=== PATIENT | female | born 1980 | race Caucasian/White ===

== ENCOUNTER → 2017-08-08 | Outpatient (CLI) | payer OTHER | LOC: FIMAGING 11:22 | PROVIDERS: ATTEND Advanced Practice Midwife | DX: O09.522 Supervision of elderly multigravida, second trimester (principal); O46.8X2 Other antepartum hemorrhage, second trimester; Z3A.13 13 weeks gestation of pregnancy ==

== ENCOUNTER → 2017-09-26 | Outpatient (CLI) | payer OTHER | LOC: FIMAGING 10:31 | PROVIDERS: ATTEND Advanced Practice Midwife | DX: O09.522 Supervision of elderly multigravida, second trimester (principal); O44.52 Low lying placenta with hemorrhage, second trimester; O43.122 Velamentous insertion of umbilical cord, second trimester; Z3A.20 20 weeks gestation of pregnancy ==

== ENCOUNTER → 2017-10-24 | Outpatient (CLI) | payer OTHER | LOC: FIMAGING 10:43 | PROVIDERS: ATTEND Advanced Practice Midwife | DX: O09.522 Supervision of elderly multigravida, second trimester (principal); O44.42 Low lying placenta NOS or without hemorrhage, second trimester; Z3A.24 24 weeks gestation of pregnancy ==

== ENCOUNTER → 2017-11-30 | Outpatient (CLI) | payer OTHER | LOC: FIMAGING 09:19 | PROVIDERS: ATTEND Advanced Practice Midwife | DX: O09.523 Supervision of elderly multigravida, third trimester (principal); O44.43 Low lying placenta NOS or without hemorrhage, third trimester; Z3A.30 30 weeks gestation of pregnancy ==

== ENCOUNTER → 2018-01-15 | Outpatient (CLI) | payer OTHER | LOC: FIMAGING 14:14 | PROVIDERS: ATTEND Advanced Practice Midwife | DX: O09.523 Supervision of elderly multigravida, third trimester (principal); O43.893 Other placental disorders, third trimester; Z3A.36 36 weeks gestation of pregnancy ==

== ENCOUNTER 2018-02-13 16:38 | Inpatient (IN) | payer OTHER ==
[2018-02-13] MEDS ORDERED: LIDOCAINE 1% 300 MG/30 ML SDV SC PRN (17:14)
[2018-02-13] MEDS ORDERED: TERBUTALINE SULFATE 1 MG/ML VIAL IV PRN (17:14)
[2018-02-13] MEDS ORDERED: OLIVE OIL 118 ML BTL MISC PRN (17:14)
[2018-02-13] MEDS ORDERED: MISOPROSTOL 200 MCG TAB PO PRN (17:14)
[2018-02-13] MEDS ORDERED: EPSOM SALT 454 GM TP PRN (17:14)
[2018-02-13] MEDS ORDERED: OXYTOCIN/RINGERS LACTATE 1,000 ML IV PRN (17:14)
[2018-02-13] MEDS ORDERED: AMMONIA AROMATIC 1 EACH AMP IH PRN (17:14)
[2018-02-13] MEDS ORDERED: IBUPROFEN 600 MG TAB PO PRN (17:14)
[2018-02-13] MEDS ORDERED: LR 1,000 ML IV PRN (17:14)
--- NOTE | 2018-02-13 17:20 | PDGENHP ---
History and Physical History and Physical: Care: [facility] HPI: Patient is a 37 yo G2 P 0 @ 40.5 weeks that presents to L&D with complaints of contractions since Monday getting stronger. Was seen in the office this afternoon and found to be 3-4 cm. Went out to do errands and noted contractions to be much stronger and closer together EDC: 02/08/2018 which is based on LMP: 05/04/17 which is known and consistent with Ultrasound at 11 weeks. Her is complicated by: AMA, Elevated BMI, low lying placenta that resolved however marginal cord insertion and bi-lobed placenta anterior and posterior. Review of Systems: Constitutional: Denies any fever, chills, or fatigue HEENT: denies any visual changes, difficulty swallowing, hearing loss Cardiovascular: Denies any chest pain, palpitations, leg swelling Respiratory: denies any cough, wheezing, or shortness of breathe GI: Denies any nausea, vomiting, diarrhea, constipation : denies any dysuria, urgency, frequency, vaginal bleeding Musculoskeletal: denies any muscle or bone pain Skin: denies any rashes Neuro: denies any headache, seizures, lightheadedness, dizziness, or loss of consciousness Psychiatric: denies any depression, anxiety, or SI/HI thoughts HISTORY: Previous OB history: Previous MAB with D & C at 9 weeks Past medical history: mild depression not required Past surgical history: D & C 2017 Social: Denies any alcohol, tobacco, or drug use. Family history: Mother hypothyroid; father renal cancer Medications: PNV Allergies (list reaction): Penicillin- Hives LABS: Rh: O + ABS: Neg Rubella: Immune HbsAg: NR HIV: NR VDRL: NR 1hr: 86 GC: Neg Chlamydia: Neg Pap: Normal 2012; needs pap GBS: neg BMI: (prepreg) 32 PHYSICAL EXAM: Constitutional: WN, A&Ox3 HEENT: normocephalic atraumatic, supple Skin: Warm, dry, intact Heart: RRR, no murmur Chest: CTA-B Abdomen: Soft, nontender, gravid SVE: 3-4 at 3 pm today in the office Extremities: +2edema, negative homans sign Neuro: grossly normal Psych: anxious, having a difficult time relaxing with contractions or with IV insertion assessment: FHT baseline 130 +accels, no decels, moderate variability Contractions: toco q 5-7 Assessment: 1) 37yo G 2P 0 with IUP@ 40.5 2) latent labor 3) GBS neg 4) Cat 1 FHR tracing Plan: 1) Admit to L&D 2) Continuous monitoring 3) Assess placenta closely when delivered to ensure both lobes present 4) Otherwise expectant management Today's visit was approximately 30 min, of which >50% of visit was spent face to face with pt on direct counseling/coordination of care.
[2018-02-13] MEDS ORDERED: OXYTOCIN 10 UNIT/ML VIAL ONE (18:10)
[2018-02-13 18:23] LABS: PLATELET COUNT 216 10^3/uL (150-400)
[2018-02-14] MEDS ORDERED: fentaNYL 100 MCG/2 ML INJ IVP PRN (02:06)
--- NOTE | 2018-02-14 02:17 | OBPROG ---
Labor Progress Note Assessment/Plan: Assessment: Plan: 02/14/18 02:21 A: Transitional labor Not coping well Category 1 strip however difficult to continuously monitor P: Discussed pain control options including an epidural. Patient had stated that she wanted to try a narcotic pain relief and wanted to avoid an epidural. Discussed concern about trauma from not coping well with labor and advised narcotic may help her relax or she may not like it at all and takes at least an hour to wear off. After I left the room, metal hanging helper and friends discussed pain control options more and she would now like to proceed with an epidural. Once she is comfortable, if still having a difficult time monitoring will again recommend and FSE. Subjective/Intrapartum Course: 02/14/18 02:16 Pt having a very difficult time coping; screaming through contractions. Has been using nitrous along with labor support from metal hanging helper and others. Lots of position changes. Questions about pain control options. Concerned about getting an epidural. Objective: 02/13/18 17:15 Patient ABO/Rh O POSITIVE 02/13/18 17:15 - SVE Dilation (cm): 8 (thick anterior lip) Effacement (%): 90 Station: -1 Membranes: Intact - Contraction Pattern Assessment Current Contraction Pattern: Regular (q 2.5 to 3 minutes) - FHR Assessment Mccarthy FHR (bpm): 120 (having a very difficlt time keeping baby on monitor; discussed earlier this evening need to continuously monitor and discussed placing an FSE; declined. RN has been sitting in the room with her and states she can hear the baby but its not showing up well on the monitor) FHR Pattern Variability: Moderate (very difficult time continuously monitoring; discussed need to continuously monitor and an FSE. Declined. RN has been sitting in room trying to keep baby on monitor. States she can hear the heart beat but not showing up on monitor) FHR Category: 1 Oxytocin Orders Assessment - Pre-Induction/Augmentation Assessment Gestational Age: 40 week(s) and 5 day(s) ICD10 Worksheet Patient Problems: Problems Problem Status Onset Acute Acute
[2018-02-14] MEDS ORDERED: fentaNYL 2MCG/ML/BUP 0.1% RTU 100 ML BAG EP ONE (02:40)
[2018-02-14] MEDS ORDERED: PHENYLEPHRINE HCL 100 MCG/ML SYR ONE (02:40)
--- NOTE | 2018-02-14 03:11 | PREANESOB ---
Obstetric Pre-Anesthesia Info - General Info Proposed Procedure: BEATRIZ : 2 Para: 0 FABIANA: 02/08/18 Gestational Age: 40 week(s) and 5 day(s) - Info Status: Full Term, Mccarthy Monitors: External FHR Pattern: Reassuring - Labor Status Cervical Dilation per last OB SVE: 8 (thick anterior lip) Station per last OB SVE: -1 Indications for Labor Analgesia: Pain Control Labor Epidural: Proposed Anesthesia Allergies/Adverse Reactions: Allergy/AdvReac Type Severity Reaction Status Date / Time penicillin V Allergy Verified 02/13/18 17:13 Penicillins Allergy Verified 02/13/18 17:13 Home Medications: Medication Instructions Recorded Vit27&Calcium/Iron/FA 1 each PO DAILY 02/13/18 [ Rx 1 Tablet (RX)] Visit Medications: Generic Name Dose Route Start Last Admin Trade Name Freq PRN Reason Stop Dose Admin Ammonia (Aromatic Spirit) 1 each 02/13/18 17:14 Ammonia Aromatic IH 02/23/18 17:13 ONCE PRN Fainting Fentanyl 50 mcg 02/14/18 02:06 Sublimaze IVP 02/24/18 02:05 Q2HRS PRN Pain, Severe Unable to Take PO Lactated Ringer's 1,000 mls @ 0 mls/hr 02/13/18 17:14 Lr IV 02/14/18 17:13 PRN PRN SEE PROTOCOL CONDITIONS Protocol Per Protocol Oxytocin/Lactated Ringer's 1,000 mls @ 0 mls/hr 02/13/18 17:14 Pitocin 20 Units/Lr (Premix) IV PRN PRN Post bleeding As Directed Ibuprofen 600 mg 02/13/18 17:14 Motrin PO ONCE PRN post , pain Lidocaine HCl 300 mg 02/13/18 17:14 Lidocaine Hcl 1% SC 08/12/18 17:13 ONCE PRN episiotomy Magnesium Sulfate 454 gm 02/13/18 17:14 Epsom Salt TP 08/12/18 17:13 Q1H PRN perineal discomfort Misoprostol 800 - 1,000 mcg 02/13/18 17:14 Cytotec PO 08/12/18 17:13 ONCE PRN Vaginal Atony/Bleeding [place] Oil 118 ml 02/13/18 17:14 Sweet Oil MISC 08/12/18 17:13 ONCE PRN perineal massage Terbutaline Sulfate 0.25 mg 02/13/18 17:14 Brethine IV 08/12/18 17:13 ONCE PRN Tachysystole Discontinued Medications Generic Name Dose Route Start Last Admin Trade Name Verenice PRN Reason Stop Dose Admin Fentanyl/Bupivacaine HCl Confirm 02/14/18 02:40 Fentanyl/Bupivacaine/Ns 2 Mcg/Ml 0.1% (Premix Administered 02/14/18 02:41 Dose 100 ml EP .STK-MED ONE Oxytocin Confirm 02/13/18 18:10 Pitocin Administered 02/13/18 18:11 Dose 10 unit .ROUTE .STK-MED ONE Phenylephrine HCl Confirm 02/14/18 02:40 Neosynephrine Administered 02/14/18 02:41 Dose 1,000 mcg .ROUTE .STK-MED ONE - Vital Signs Height/Weight (Nursing): Height 165.1 cm Weight 108.862 kg - Focused Exam Neck exam: FROM Mallampati Score: Class 2 Mouth exam: normal dental/mouth exam Pulmonary: no respiratory distress, no rales or rhonchi, clear to auscultation Cardiovascular: regular rate and rhythym, no murmur, rub, or gallop Labs: 02/13/18 17:15 Patient ABO/Rh O POSITIVE 02/13/18 17:15
[2018-02-14] MEDS: PHENYLEPHRINE HCL 100 MCG/ML SYR IVP PRN ×6 (03:23→04:44)
[2018-02-14] MEDS: LR 500 ML IV SCH ×2 (03:23→06:03)
[2018-02-14] MEDS ORDERED: fentaNYL 2MCG/ML/BUP 0.1% RTU 100 ML EP SCH (03:30)
--- NOTE | 2018-02-14 03:33 | POSTANESTH ---
Post Anesthetic Evaluation Cardiovascular Status: Normal, Stable, Similar to Pre-Op Cond Respiratory Status: Normal, Stable, Similar to Pre-op Cond. Level of Consciousness/Mental Status: Can Participate in Eval Pain Control: Adequate, Prn Tx Ordered Nausea/Vomiting Control: Adequate, Prn Tx Ordered Complications Possibly Related to Anesthesia: None Noted (Good analgesia. Still a little coccygeal pain with contractions, but she's able to rest through them.)
[2018-02-14] MEDS ORDERED: LR 500 ML IV PRN (10:30)
[2018-02-14] MEDS ORDERED: OXYTOCIN/RINGERS LACTATE 500 ML IV SCH (10:30)
--- NOTE | 2018-02-14 10:30 | OBPROG ---
Labor Progress Note Assessment/Plan: Assessment: [id number] with IUP@ 40-6wks labor GBS Negative BEATRIZ in place Plan: labor down x 1 hour reassess/start pushing in 1-2 hours anticipate Subjective/Intrapartum Course: 02/14/18 02:16 Pt having a very difficult time coping; screaming through contractions. Has been using nitrous along with labor support from dump truck driver and others. Lots of position changes. Questions about pain control options. Concerned about getting an epidural. 02/14/18 07:30 Pt doing ok- comfortable with BEATRIZ, having some intermittent pressure with contractions. after attempting pushing through 3-4 contractions- decision made to passive descent Objective: 02/13/18 17:15 Patient ABO/Rh O POSITIVE 02/13/18 17:15 - SVE Dilation (cm): 10 Effacement (%): 100 Station: +1 Membranes: SROM Amniotic Fluid Color: Clear - Contraction Pattern Assessment Current Contraction Pattern: Regular (q 2.5 to 3 minutes) - FHR Assessment Mccarthy FHR (bpm): 150 FHR Pattern Variability: Moderate FHR Category: 1 Oxytocin Orders Assessment - Pre-Induction/Augmentation Assessment Gestational Age: 40 week(s) and 5 day(s) ICD10 Worksheet Patient Problems: Problems Problem Status Onset Admitted to labor and delivery Acute Long labor, antepartum Acute Acute Acute - ICD10 Problem Qualifiers (1) Long labor, antepartum (2) Admitted to labor and delivery
[2018-02-14] MEDS ORDERED: SIMETHICONE 80 MG TAB CHEW PO PRN (14:24)
[2018-02-14] MEDS ORDERED: HYDROCORTISONE 0.5% CREAM TP PRN (14:24)
--- NOTE | 2018-02-14 14:24 | OBDEL ---
Info Type: Vaginal Presentation at Delivery: Vertex L&D Analgesia/Anesthesia Type: Epidural GBS+: No Intrapartum Medications: Generic Name Dose Route Start Last Admin Trade Name Verenice PRN Reason Stop Dose Admin Fentanyl/Bupivacaine HCl 100 mls @ 0 mls/hr 02/14/18 03:30 02/14/18 03:02 Fentanyl/Bupivacaine/Ns 2 Mcg/Ml 0.1% (Premix EP 02/24/18 03:29 100 mls CONT THA Administration Protocol As Directed Lactated Ringer's 500 mls @ 0 mls/hr 02/14/18 03:30 02/14/18 06:03 Lr IV 08/13/18 03:29 500 mls CONT THA Administration As Directed Oxytocin/Lactated Ringer's 500 mls @ 0 mls/hr 02/14/18 10:30 02/14/18 10:42 Pitocin 30 Units/Lr (Premix) IV 08/13/18 10:29 500 mls CONT THA Administration Protocol Per Protocol Phenylephrine HCl 100 mcg 02/14/18 03:11 02/14/18 04:44 Neosynephrine IVP 08/13/18 03:10 100 mcg .Q2M PRN Administration Hypotension - Hospital Course Intrapartum: 02/14/18 02:16 Pt having a very difficult time coping; screaming through contractions. Has been using nitrous along with labor support from visual basic programmer and others. Lots of position changes. Questions about pain control options. Concerned about getting an epidural. 02/14/18 07:30 Pt doing ok- comfortable with BEATRIZ, having some intermittent pressure with contractions. after attempting pushing through 3-4 contractions- decision made to passive descent Indications for Delivery: Spontaneous Labor, SROM Vaginal Delivery - Delivery Provider Delivery Physician/CNM: Adore Paiz - Labor and Delivery Onset of Contractions Date: 02/13/18 Onset of Contractions Time: 13:30 Onset of Contractions Type: Spontaneous Rupture of Membranes Date: 02/14/18 Rupture of Membranes Time: 02:00 Rupture of Membranes Type: Spontaneous Amniotic Fluid Color: Clear Dilation Complete Date: 02/14/18 Dilation Complete Time: 06:50 Placenta Delivery Date: 02/14/18 Placenta Delivery Time: 12:21 Total Hours of Labor: 22 Laceration: 2nd Degree, Other (Specify) (labial lacerations) Repair: 3-0, Vicryl, Chromic Vaginal Sponge Count Correct: Yes Vaginal Needle Count Correct: Yes Vaginal Sweep Performed: Yes EBL: 400 Delivery Comment: delivered without difficulty. Spontaneous cry- baby to mothers chest. [place] Data FABIANA: 02/08/18 Gestational Age: 40 week(s) and 6 day(s) Mccarthy Delivery Date: 02/14/18 Delivery Time: 12:14 Sex of Infant: Male Score (1 Min): 9 Score (5 Min): 9 ICD10 Worksheet Patient Problems: Problems Problem Status Onset Admitted to labor and delivery Acute Long labor, antepartum Acute Acute Acute - ICD10 Problem Qualifiers (1) Long labor, antepartum (2) Admitted to labor and delivery
[2018-02-14] MEDS: IBUPROFEN 600 MG TAB PO SCH ×2 (14:47→20:35)
[2018-02-14] MEDS: ACETAMINOPHEN 325 MG TAB PO SCH ×2 (18:27→21:08)
[2018-02-15] MEDS: IBUPROFEN 600 MG TAB PO SCH ×4 (02:31→21:26)
[2018-02-15] MEDS: ACETAMINOPHEN 325 MG TAB PO SCH ×4 (02:32→20:14)
[2018-02-15] MEDS: DOCUSATE SODIUM 100 MG CAP PO PRN (08:43)
--- NOTE | 2018-02-15 10:58 | POSTANESTH ---
Post Anesthetic Evaluation Cardiovascular Status: Normal, Stable Respiratory Status: Normal, Stable Level of Consciousness/Mental Status: Can Participate in Eval Pain Control: Adequate, Prn Tx Ordered Nausea/Vomiting Control: Adequate, Prn Tx Ordered Complications Possibly Related to Anesthesia: None Noted (Patient reports labor BEATRIZ analgesia was "a life saver". No residual weakness/numbness, headache, visual or auditory issues ellicited. Able to ambulate and urinate without difficulty.)
--- NOTE | 2018-02-15 11:10 | OBPP ---
Progress Note Assessment/Plan: Assessment: 37 y/o P1 s/p ppd 1 going well 400 ebl-declines pp hct Plan: routine pp care daily iron plan d/c tomorrow 02/15/18 11:06 Subjective/ Course: 02/15/18 11:10 Feeling good this am - going fine. Tolerating diet, voiding, ambulating, pain well controlled with oral pain meds. Declined blood draw for hct this am - agrees to daily iron supplement. 02/15/18 11:13 Objective: 02/13/18 17:15 Patient ABO/Rh O POSITIVE 02/13/18 17:15 Temp Pulse Resp BP Pulse Ox 36.6 C 79 16 108/73 98 02/15/18 09:13 02/15/18 09:13 02/15/18 09:13 02/15/18 09:13 02/15/18 09:13 Uterine Position/Fundal Height: Umbilicus -1 Uterine Tone: Firm Physical Exam - Physical Exam EENT: PERRL/EOMI Neck: non-tender Respiratory: normal breath sounds Cardiac/Chest: regular rate, rhythm Extremities: normal range of motion Skin: normal color Neuro/Psych: no motor/sensory deficits, alert, normal mood/affect, oriented x 3
[2018-02-15] MEDS: FERROUS SULFATE 325 MG TAB PO SCH (11:27)
[2018-02-16] MEDS: DOCUSATE SODIUM 100 MG CAP PO PRN ×2 (02:35→09:01)
[2018-02-16] MEDS: ACETAMINOPHEN 325 MG TAB PO SCH ×2 (02:35→09:01)
[2018-02-16] MEDS: IBUPROFEN 600 MG TAB PO SCH ×3 (03:55→10:44)
[2018-02-16] MEDS: FERROUS SULFATE 325 MG TAB PO SCH (09:01)
--- NOTE | 2018-02-16 10:23 | OBPP ---
Progress Note Assessment/Plan: Assessment: Plan: 02/14/18 02:21 A: Transitional labor Not coping well Category 1 strip however difficult to continuously monitor P: Discussed pain control options including an epidural. Patient had stated that she wanted to try a narcotic pain relief and wanted to avoid an epidural. Discussed concern about trauma from not coping well with labor and advised narcotic may help her relax or she may not like it at all and takes at least an hour to wear off. After I left the room, production team manager and friends discussed pain control options more and she would now like to proceed with an epidural. Once she is comfortable, if still having a difficult time monitoring will again recommend and FSE. 02/16/18 10:22 Day 2 PP Establishing ; left nipple cracked P: APO applied after feedings Continue ibuprofen and tylenol Discharge home today; reviewed discharge instructions Subjective/ Course: 02/15/18 11:10 Feeling good this am - going fine. Tolerating diet, voiding, ambulating, pain well controlled with oral pain meds. Declined blood draw for hct this am - agrees to daily iron supplement. 02/15/18 11:13 02/16/18 10:21 Doing well. Able to get some good rest last night. States going well. Left nipple is sore. Objective: 02/13/18 17:15 Patient ABO/Rh O POSITIVE 02/13/18 17:15 Temp Pulse Resp BP Pulse Ox 36.4 C 94 18 123/73 H 97 02/15/18 20:15 02/15/18 20:15 02/15/18 20:15 02/15/18 20:15 02/15/18 20:15 Breasts: Soft, left nipple cracked neg douglas's sign Uterine Position/Fundal Height: Umbilicus -1 Uterine Tone: Firm
--- NOTE | 2018-02-16 10:24 | OBGCSDC ---
General Delivery Information - General Info : 2 Para: 1 Abortions: 1 Type: Vaginal L&D Analgesia/Anesthesia Type: Epidural Admission Date: 02/13/18 Labs: Patient ABO/Rh O POSITIVE 02/13/18 17:15 Hct 37.5 % (38.0-47.0) L 02/13/18 17:15 - Hospital Course Intrapartum: 02/14/18 02:16 Pt having a very difficult time coping; screaming through contractions. Has been using nitrous along with labor support from end finder twisting department and others. Lots of position changes. Questions about pain control options. Concerned about getting an epidural. 02/14/18 07:30 Pt doing ok- comfortable with BEATRIZ, having some intermittent pressure with contractions. after attempting pushing through 3-4 contractions- decision made to passive descent : 02/15/18 11:10 Feeling good this am - going fine. Tolerating diet, voiding, ambulating, pain well controlled with oral pain meds. Declined blood draw for hct this am - agrees to daily iron supplement. 02/15/18 11:13 02/16/18 10:21 Doing well. Able to get some good rest last night. States going well. Left nipple is sore. Vaginal - Delivery Provider Delivery Physician/CNM: Adore Paiz - Diagnosis Labor: Spontaneous Rupture of Membranes Type: Spontaneous Amniotic Fluid Color: Clear Laceration: 2nd Degree, Other (Specify) (labial lacerations) Repair: 3-0, Vicryl, Chromic - Delivery EBL: 400 Data FABIANA: 02/08/18 Gestational Age: 41 week(s) and 1 day(s) Mccarthy Delivery Date: 02/14/18 Delivery Time: 12:14 Sex of : Male [place] Weight (gm): 3174 g Score (1 Min): 9 Score (5 Min): 9 Discharge Information - Discharge Information Condition: Good Instruction/Follow Up: Two Weeks, Four Weeks, Six Weeks
[2018-02-16 12:03] VITALS: BP 111/67
== END 2018-02-16 11:50 | disposition home or self-care (01) | DRG 806 ==
LOC: OBSVTOIN 16:38 → FLD 16:38 → FOB 02-14 16:35
PROVIDERS: ADMIT Advanced Practice Midwife; ATTEND Advanced Practice Midwife
DX: O48.0 Post-term pregnancy (principal); O44.23 Partial placenta previa NOS or without hemorrhage, third trimester; O70.1 Second degree perineal laceration during delivery; Z3A.41 41 weeks gestation of pregnancy; Z37.0 Single live birth
CPT/HCPCS: J2370; J2590; J3105